=== PATIENT | female | born 1975 | race African-American/Black ===

== ENCOUNTER 2016-06-11 17:13 | Emergency (ER) | payer SELFPAY ==
[2016-06-11 17:13] VITALS: BP 128/85
[~2016-06-11 17:13] MED LIST: OXYC-323 PO
--- NOTE | 2016-06-11 17:48 | ED.ADGEN ---
Past History Past Medical History: No Pertinent History Past Surgical History: Cholecystectomy Alcohol Use: Sober Drug Use: None Adult General Chief Complaint Chief Complaint ".. The last 24 hours .. I had three watery stools... and pain down here on Lt...." [facility] HPI Patient is a 40 year old female who presents with Lt. lower 8/10 abdomen pain and diarrhea in past twenty four hours. No history of bad food. Patient last ate this before coming in today. Poorly stools have been brown in color and no findings of blood. No travel. No trauma. Patient normally healthy. Patient follows with a primary care. Review of Systems Review of Systems Constitutional: Denies fever or chills [] Eyes: Denies change in visual acuity, redness, or eye pain [] HENT: Denies nasal congestion or sore throat [] Respiratory: Denies cough or shortness of breath [] Cardiovascular: No additional information not addressed in HPI [] GI: Plaints of left lower quadrant abdominal pain, nausea, and diarrhea [] : Denies dysuria or hematuria [] Musculoskeletal: Denies back pain or joint pain [] Integument: Denies rash or skin lesions [] Neurologic: Denies headache, focal weakness or sensory changes [] Endocrine: Denies polyuria or polydipsia [] Family History Family History Noncontributory Current Medications Current Medications Current Medications Medications (Trade) Dose Ordered Sig/Asher Start Time Stop Time Status Last Admin Dose Admin Ceftriaxone Sodium/Sodium Chloride (Rocephin/Iv Sodium Chloride 0.9% 100ml) 100 ml @ 200 mls/hr 1X ONCE 06/11/16 19:30 06/11/16 19:59 DC 06/11/16 20:15 200 MLS/HR Ceftriaxone Sodium (Rocephin) 2 gm STK-MED ONCE 06/11/16 20:06 06/11/16 20:07 DC Famotidine 20 mg 20 mg 1X ONCE 06/11/16 18:15 06/11/16 18:16 DC 06/11/16 18:19 20 MG Iohexol (Omnipaque 240 Mg/ml) 30 ml 1X ONCE 06/11/16 19:30 06/11/16 19:31 DC 06/11/16 20:11 30 ML Iohexol 75 ml 75 ml 1X ONCE 06/11/16 19:30 06/11/16 19:31 DC 06/11/16 20:12 75 ML Lactated Ringer's (Iv Lactated Ringers) 1,000 ml @ 100 mls/hr Q10H 06/11/16 18:00 06/11/16 22:07 DC 06/11/16 18:17 100 MLS/HR Ondansetron HCl (Zofran) 8 mg 1X ONCE 06/11/16 18:15 06/11/16 18:16 DC 06/11/16 18:19 8 MG Sodium Chloride (Iv Sodium Chloride 0.9% 100ml) 100 ml @ As Directed STK-MED ONCE 06/11/16 20:06 06/11/16 20:07 DC Allergies Allergies Allergies Coded Allergies Type Severity Reaction Last Updated Verified doxycycline Allergy Severe Anaphylaxis 05/11/15 Yes lactose Allergy Intermediate 06/24/14 Yes clindamycin Allergy Unknown Unknown 05/11/15 Yes metronidazole Allergy Unknown Unknown 05/11/15 Yes Physical Exam Physical Exam Constitutional: Well developed, well nourished, no acute distress, non-toxic appearance. [] HENT: Normocephalic, atraumatic, bilateral external ears normal, oropharynx moist, no oral exudates, nose normal. [] Eyes: PERRLA, EOMI, conjunctiva normal, no discharge. [] Neck: Normal range of motion, no tenderness, supple, no stridor. [] Cardiovascular:Heart rate regular rhythm, no murmur [] Lungs & Thorax: Bilateral breath sounds clear to auscultation [] Abdomen: Bowel sounds hyperactive, soft, no tenderness, no masses, no pulsatile masses. Old surgical scar. Declines rectal exam this time. No true rebound. Skin: Warm, dry, no erythema, no rash. [] Back: No tenderness, no CVA tenderness. [] Extremities: No tenderness, no cyanosis, no clubbing, ROM intact, no edema. [] No true psoas, obturator or heeltap Neurologic: Alert and oriented X 3, normal motor function, normal sensory function, no focal deficits noted. [] Psychologic: Affect anxious, judgement normal, mood normal. [] Current Patient Data Vital Signs Vital Signs Date Time Temp Pulse Resp B/P Pulse Ox O2 Delivery O2 Flow Rate FiO2 06/11/16 17:13 98.4 77 18 99 Room Air Lab Results Laboratory Tests Test 06/11/16 18:00 White Blood Count 12.4x10^3/uL (4.0-11.0) H Red Blood Count 5.05x10^6/uL (3.50-5.40) Hemoglobin 12.5g/dL (12.0-15.5) Hematocrit 37.7% (36.0-47.0) Mean Corpuscular Volume 75fL (79-100) L Mean Corpuscular Hemoglobin 25pg (25-35) Mean Corpuscular Hemoglobin Concent 33g/dL (31-37) Red Cell Distribution Width 13.7% (11.5-14.5) Platelet Count 238x10^3/uL (140-400) Neutrophils (%) (Auto) 72% (31-73) Lymphocytes (%) (Auto) 21% (24-48) L Monocytes (%) (Auto) 6% (0-9) Eosinophils (%) (Auto) 1% (0-3) Basophils (%) (Auto) 0% (0-3) Neutrophils # (Auto) 9.0x10^3uL (1.8-7.7) H Lymphocytes # (Auto) 2.6x10^3/uL (1.0-4.8) Monocytes # (Auto) 0.7x10^3/uL (0.0-1.1) Eosinophils # (Auto) 0.2x10^3/uL (0.0-0.7) Basophils # (Auto) 0.0x10^3/uL (0.0-0.2) Prothrombin Time 9.5SEC (9.4-11.4) Prothrombin Time INR 0.9 (0.9-1.1) PTT 24SEC (23-33) Urine Collection Type Unknown Urine Color Yellow Urine Clarity Cloudy Urine pH 7.0 Urine Specific [place] 1.020 Urine Protein Neg (NEG-TRACE) Urine Glucose (UA) Negmg/dL (NEG) Urine Ketones (Stick) Negmg/dL (NEG) Urine Blood Trace (NEG) Urine Nitrite Neg (NEG) Urine Bilirubin Neg (NEG) Urine Urobilinogen Dipstick 0.2mg/dL (0.2 mg/dL) Urine Leukocyte Esterase Trace (NEG) Urine RBC 1-2/HPF (0-2) Urine WBC 11-20/HPF (0-4) Urine Squamous Epithelial Cells Many/LPF Urine Bacteria Few/HPF (0-FEW) Urine Hyaline Casts Few/HPF Urine Mucus Mod/LPF Maternal Serum HCG Beta Subunit < 1mIU/mL (0-6) Sodium Level 141mmol/L (136-145) Potassium Level 3.7mmol/L (3.5-5.1) Chloride Level 104mmol/L (98-107) Carbon Dioxide Level 27mmol/L (21-32) Anion Gap 10 (6-14) Blood Urea Nitrogen 6mg/dL (7-20) L Creatinine 0.8mg/dL (0.6-1.0) Estimated GFR (Cockcroft-Gault) 96.6 Glucose Level 114mg/dL (70-99) H Calcium Level 9.0mg/dL (8.5-10.1) Total Bilirubin 0.4mg/dL (0.2-1.0) Direct Bilirubin 0.1mg/dL (0.0-0.2) Aspartate Amino Transferase (AST) 10U/L (15-37) L Alanine Aminotransferase (ALT) 14U/L (14-59) Alkaline Phosphatase 109U/L (46-116) Creatine Kinase 55U/L (26-192) Troponin I Quantitative < 0.017ng/mL (0-0.055) Total Protein 7.6g/dL (6.4-8.2) Albumin 3.9g/dL (3.4-5.0) Amylase Level 62U/L (25-115) Lipase 91U/L (73-393) Urine Opiates Screen Neg (NEG) Urine Methadone Screen Neg (NEG) Urine Barbiturates Neg (NEG) Urine Phencyclidine Screen Neg (NEG) Urine Amphetamine/Methamphetamine Neg (NEG) Urine Benzodiazepines Screen Neg (NEG) Urine Cocaine Screen Neg (NEG) Urine Cannabinoids Screen Neg (NEG) Urine Ethyl Alcohol Neg (NEG) EKG EKG [] Radiology/Procedures Radiology/Procedures My interpretation of x-ray shows no free air under the diaphragm. Does have findings of surgical clips from cholecystectomy and wires from tubal ligation. Also has an isolated clip in right mid abdomen. Nonspecific bowel gas pattern. [ ]CT show s no acute surgical pathology. Ovarian Cyst. Increased stool. Course & Med Decision Making Course & Med Decision Making Pertinent Labs and Imaging studies reviewed. (See chart for details). Stay on a clear fluid diet only for the next 48 hours. No solid no milk products clear fluids only to allow bowel rest. Take Zofran 8 mg up 4 times a day for vomiting. Take [id number] Pepto-Bismol as needed. Follow up all cultures and labs with primary. Take Keflex 500 mg 3 times a day for 7 days. [] Final Impression Final Impression 1. Abdomen Pain 2. Diarrhea[] 3. UTI 4. Leukocytosis 5. Microcytic Volume 6. Ovarian Cyst Problems: Dragon Disclaimer Dragon Disclaimer This electronic medical record was generated, in whole or in part, using a voice recognition dictation system. CARLOS ENRIQUE LAURA MD Jun 11, 2016 17:48
[2016-06-11] MEDS ORDERED: IV RINGERS SOLUTION,LACTATED 1,000 ML IV SCH (18:00)
[2016-06-11] MEDS ORDERED: ONDANSETRON PF 4 MG/2 ML VIAL. IV ONE (18:15)
[2016-06-11] MEDS ORDERED: FAMOTIDINE 20 MG/2 ML VIAL IVP ONE (18:15)
[2016-06-11 18:26] LABS: BASO % 0 % (0-3); EOS # 0.2 x10^3/uL (0.0-0.7); EOS % 1 % (0-3); HEMATOCRIT 37.7 % (36.0-47.0); HEMOGLOBIN 12.5 g/dL (12.0-15.5); LYMPH # 2.6 x10^3/uL (1.0-4.8); LYMPH % 21 % (24-48); MEAN CORPUSCULAR HEMOGLOBIN 25 pg (25-35); MEAN CORPUSCULAR HGB CONC 33 g/dL (31-37); MEAN CORPUSCULAR VOLUME 75 fL (79-100); MONO # 0.7 x10^3/uL (0.0-1.1); MONO % 6 % (0-9); NEUT % 72 % (31-73); PLATELET COUNT 238 x10^3/uL (140-400); RED BLOOD COUNT 5.05 x10^6/uL (3.50-5.40); RED CELL DISTRIBUTION WIDTH 13.7 % (11.5-14.5); WHITE BLOOD COUNT 12.4 x10^3/uL (4.0-11.0)
[2016-06-11 18:38] LABS: BILIRUBIN,URINE NEG (NEG); CLARITY,URINE CLOUDY; COLOR,URINE YELLOW; GLUCOSE,URINE NEG (NEG)
[2016-06-11 18:39] LABS: NITRITE,URINE NEG (NEG); UROBILINOGEN,URINE 0.2 mg/dL (0.2 mg/dL)
[2016-06-11 18:40] LABS: BACTERIA,URINE FEW /HPF (0-FEW); SQUAMOUS EPITHELIAL CELL,UR MANY /LPF
[2016-06-11 18:42] LABS: HYALINE CASTS, URINE FEW /HPF
[2016-06-11 18:44] LABS: AMPHETAMINE/METHAMPHETAMINE NEG (NEG); BARBITURATES NEG (NEG); BENZODIAZEPINES NEG (NEG); CANNABINOIDS NEG (NEG); COCAINE NEG (NEG); METHADONE NEG (NEG); OPIATES NEG (NEG); PHENCYCLIDINE NEG (NEG)
[2016-06-11 18:46] LABS: ALBUMIN 3.9 g/dL (3.4-5.0); CREATININE 0.8 mg/dL (0.6-1.0); DIRECT BILIRUBIN 0.1 mg/dL (0.0-0.2); GFR 96.6; POTASSIUM 3.7 mmol/L (3.5-5.1); TOTAL BILIRUBIN 0.4 mg/dL (0.2-1.0); TOTAL PROTEIN 7.6 g/dL (6.4-8.2)
[2016-06-11] MEDS ORDERED: IOHEXOL 240 MG/ML 50ML VIAL. PO ONE (19:30)
[2016-06-11] MEDS ORDERED: IOHEXOL 300 MG/ML 75 ML VIAL. IV ONE (19:30)
[2016-06-11] MEDS ORDERED: CEFTRIAXONE SODIUM 2 GM in IV NORMAL SALINE 100ML 100 ML IV ONE (19:30)
[2016-06-11] MEDS ORDERED: IV NORMAL SALINE 100ML 100 ML ONE (20:06)
[2016-06-11] MEDS ORDERED: CEFTRIAXONE SODIUM 2 GM VIAL IV ONE (20:06)
--- NOTE | 2016-06-11 20:53 | RAD ---
PROCEDURE CT abdomen pelvis with contrast. HISTORY Severe left-sided abdominal pain. Diarrhea today. TECHNIQUE Helical CT imaging of the abdomen and pelvis is performed after oral contrast and 75 cc Omnipaque 300 IV contrast. PQRS: One or more the following individualized dose reduction techniques were utilized for the study: 1. Automated exposure control. 2. Adjustment of the mA and/or kV according to patient size. 3. Use of iterative reconstruction technique. COMPARISON CT abdomen pelvis with contrast June 24, 2014. FINDINGS The minimal atelectasis or scarring right middle lobe. Cardiac size normal. Cholecystectomy. The liver, spleen, pancreas, adrenal glands, kidneys, and abdominal aorta are normal. Stomach unremarkable. No dilated small bowel. No colon wall thickening is seen. The appendix is normal. No abdominal adenopathy or free fluid. There are bilateral fallopian tube occlusion devices. Uterus unremarkable. Peripherally enhancing left ovary functional cyst measures 2.9 cm. There is trace pelvic free fluid, probably physiologic. Urinary bladder is normal. No acute bone abnormality. IMPRESSION 1. No acute abdominal or pelvic abnormality. 2. Small left ovary functional cyst. Trace pelvic free fluid. Findings are probably physiologic. Electronically signed by: Scott Herzog MD (Jun 11, 2016 20:51:59)
[2016-06-11] MEDS ORDERED: HYDR-79 PO (21:38)
[2016-06-11] MEDS ORDERED: CEPH-264 PO (21:38)
[2016-06-11] MEDS ORDERED: ONDA8TAB12 PO (21:39)
--- NOTE | 2016-06-12 08:11 | RAD ---
Acute abdomen series with chest, 06/11/2016: History: Left-sided pain The abdominal gas pattern is unremarkable without evidence of obstruction. No free air is seen in the abdomen. There is no evidence of organomegaly. Fallopian tube occlusion devices are evident in the upper pelvis. There are surgical clips in the right upper quadrant. An additional small radiopaque clip is projected over the right lower quadrant. The heart size is normal. The lungs are clear. There is no evidence of pleural fluid. IMPRESSION: No acute abdominal abnormality is detected.
== END 2016-06-11 21:50 | disposition home or self-care (01) ==
LOC: ER 17:13
DX: N39.0 Urinary tract infection, site not specified (principal); N83.202 Unspecified ovarian cyst, left side; R10.32 Left lower quadrant pain; R19.7 Diarrhea, unspecified; D72.829 Elevated white blood cell count, unspecified; D50.9 Iron deficiency anemia, unspecified; Z90.49 Acquired absence of other specified parts of digestive tract; Z88.8 Allergy status to other drugs, medicaments and biological substances; Z88.1 Allergy status to other antibiotic agents; Z91.011 Allergy to milk products
CPT/HCPCS: 36415; 74022; 74177; 80048; 80076; 80305; 81001; 82150; 82550; 83690; 84484; 84702; 85027; 85610; 85730; 96361; 96365; 96375; 99285; J0696; J2405; J7120; Q9966; Q9967; S0028; G0481

== ENCOUNTER 2016-09-14 00:11 | Emergency (ER) | payer SELFPAY ==
[~2016-09-14] VITALS: Ht 157.5 cm; Wt 66.7 kg
[~2016-09-14 00:11] MED LIST changes: +CEPH-264 PO; +HYDR-79 PO; +ONDA8TAB12 PO
[2016-09-14] MEDS ORDERED: NITROGLYCERIN SUBLINGUAL 0.4 MG BOTTLE OF 25. SL PRN (00:30)
[2016-09-14 00:48] LABS: BASO % 1 % (0-3); EOS # 0.2 x10^3/uL (0.0-0.7); EOS % 3 % (0-3); HEMATOCRIT 40.1 % (36.0-47.0); HEMOGLOBIN 13.5 g/dL (12.0-15.5); LYMPH # 3.5 x10^3/uL (1.0-4.8); LYMPH % 36 % (24-48); MEAN CORPUSCULAR HEMOGLOBIN 25 pg (25-35); MEAN CORPUSCULAR HGB CONC 34 g/dL (31-37); MEAN CORPUSCULAR VOLUME 74 fL (79-100); MONO # 0.6 x10^3/uL (0.0-1.1); MONO % 6 % (0-9); NEUT # 5.2 x10^3uL (1.8-7.7); NEUT % 55 % (31-73); PLATELET COUNT 252 x10^3/uL (140-400); RED BLOOD COUNT 5.44 x10^6/uL (3.50-5.40); RED CELL DISTRIBUTION WIDTH 13.6 % (11.5-14.5); WHITE BLOOD COUNT 9.6 x10^3/uL (4.0-11.0)
[2016-09-14] MEDS ORDERED: ASPIRIN 81 MG TAB.CHEW PO ONE (01:00)
[2016-09-14 01:06] LABS: ALBUMIN 4.2 g/dL (3.4-5.0); CALCIUM 9.1 mg/dL (8.5-10.1); CREATININE 0.7 mg/dL (0.6-1.0); GFR 112.7; POTASSIUM 3.8 mmol/L (3.5-5.1); TOTAL BILIRUBIN 0.7 mg/dL (0.2-1.0); TOTAL PROTEIN 8.6 g/dL (6.4-8.2)
[2016-09-14 01:24] VITALS: BP 127/83
--- NOTE | 2016-09-14 01:56 | PHYS DOC ---
General Chief Complaint: flank pain/emesis Stated Complaint: DIZZY,VOMITING,BACK AND CHEST PAIN Time Seen by MD: 00:30 Source: patient Exam Limitations: no limitations Problems: History of Present Illness Initial Comments Patient is a 40-year-old female who comes to the ED complaining of abdominal and flank pain, nausea vomiting. Patient states that earlier tonight she was feeling well and had to go into work at 10 PM where she works at [employer]. She says she's on her feet a lot at work and immediately prior to arrival while working she developed cold sweats , lightheadedness, epigastric discomfort and vomited once. She had burning/ throbbing discomfort at her anterior chest after vomiting which resolved after a short time with no treatment. She otherwise denies chest pain, shortness of breath, arm or neck discomfort, fever chills sweats or myalgias. She denies travel or bad food exposure, no change in bowel movements last bowel movement yesterday described as normal. She does admit to several days worsening left flank pain and urinary frequency no hematuria odor dysuria or unexplained weight loss. In the emergency department patient remains mildly nauseous she's had no further emesis after receiving Zofran. No focal abdominal pain complaints. Denies hypertension, hyperlipidemia, diabetes; patient smokes greater than one pack per day and denies family history of coronary artery disease aside from that experience by relatives in extreme old age. Timing/Duration: 1/2 hour Severity: moderate Modifying Factors: worse with eating, worse with movement, improves with rest Associated Symptoms: diaphoresis, malaise, nausea/vomiting, other Allergies: Coded Allergies: doxycycline (Verified Allergy, Severe, Anaphylaxis, 05/11/15) lactose (Verified Allergy, Intermediate, 06/24/14) clindamycin (Verified Allergy, Unknown, Unknown, 05/11/15) metronidazole (Verified Allergy, Unknown, Unknown, 05/11/15) Past Medical History Medical History: no pertinent history Surgical History: cholecystectomy Family History Significant Family History: other (FH of CAD only in "old age" no early onset CAD or sudden cardiac ) Social History Smoker: greater than 1 pack/day Alcohol: none Drugs: none Review of Systems Constitutional: see HPI, denies fever Respiratory: denies cough, denies orthopnea, denies shortness of breath, denies wheezing Cardiovascular: denies chest pain, denies edema, denies palpitations, denies syncope Gastrointestinal: see HPI Genitourinary: denies dysuria, frequency, denies hematuria Musculoskeletal: see HPI, denies joint swelling, denies neck pain Psychiatric/Neurological: denies headache, denies numbness, denies paresthesia Hematologic/Lymphatic: denies blood clots, denies easy bleeding, denies easy bruising Physical Exam General Appearance: WD/WN, no apparent distress Eyes: bilateral eye normal inspection, bilateral eye PERRL, bilateral eye EOMI Ear, Nose, Throat: hearing grossly normal, normal ENT inspection, normal pharynx Neck: non-tender, supple Respiratory: lungs clear, normal breath sounds Cardiovascular: normal peripheral pulses, regular rate, rhythm Gastrointestinal: soft (nondistended, bowel sounds normal, mild abdominal muscle tenderness negative McBurney negative Hartman no rebound guarding or palpable mass) Back: no vertebral tenderness, CVA tenderness (L) Extremities: non-tender, normal inspection Neurologic/Psychiatric: director strategic account management II-XII nml as tested, no motor/sensory deficits, alert, normal mood/affect, oriented x 3 Skin: normal color, warm/dry Orders, Labs, Meds EKG: Normal sinus rhythm 74 bpm, nonspecific ST-T changes no STEMI. Interpreted by Dr. Andrade PCXR: Hyperinflation otherwise no acute cardiopulmonary process noted. Interpreted by Dr. Andrade Pertinent labs: Cardiac enzymes negative, d-dimer 0.44 Urine dipstick positive for leukocyte esterase sent for culture. ED course: 40-year-old female smoker with no past medical history comes to the ED with several days flank pain urinary frequency and one episode of nausea and vomiting with cold sweats and lightheadedness while working. Symptoms resolved with Zofran by mouth, ED workup has been unremarkable aside from pyelonephritis. Only coronary artery disease risk factor is tobacco abuse, low probability of coronary etiology for tonight symptoms. I discussed the treatment plan as well as possibility of observation admission. Patient requests discharge home, she will be discharged with antibiotics and symptomatic treatment. She expressed agreement and understanding of treatment plan. She was advised to stop smoking. Departure Time of Disposition: 01:54 Disposition: HOME, SELF-CARE Diagnosis: pyelonephritis, tobaccoism Condition: GOOD Patient Instructions: Pyelonephritis, Adult, [id number] Additional Instructions: No driving or operating machinery while taking sedative medications. Off work through September 17. Clear liquids, advance diet slowly as tolerated. Aggressive hydration with Gatorade and water. [id number] Tylenol as needed. Prescription: Bactrim DS, Pyridium 100 mg, Zofran 4 mg ODT, [place] 5 mg quantity 10 A Tylenol 3 starter pack has been dispensed to you in the ED. Take 1-2 every 6 hours as needed for severe pain. Take medications with food to avoid nausea and vomiting. Increase fluid intake and take [id number] stool softeners to avoid constipation. Follow-up with your doctor on Saturday for recheck and urine culture results. Return to the ED with new or changing symptoms. PARVIZ ANDRADE DO Sep 14, 2016 01:56
[2016-09-14] MEDS ORDERED: SMZ/TMP 800/160MG TABLET. PO ONE (02:00)
[2016-09-14] MEDS ORDERED: ACETAMINOPHEN/CODEINE 300/30MG 4TABLET STARTPACK. PO ONE (02:00)
[2016-09-14] MEDS ORDERED: PHENAZOPYRIDINE 100 MG TABLET. PO ONE (02:00)
[2016-09-14 05:10] LABS: BILIRUBIN,URINE SMALL (NEG); CLARITY,URINE CLOUDY; COLOR,URINE YELLOW; GLUCOSE,URINE NEG (NEG)
[2016-09-14 05:11] LABS: NITRITE,URINE NEG (NEG); UROBILINOGEN,URINE 2 mg/dL (0.2 mg/dL)
--- NOTE | 2016-09-14 06:47 | EKG ---
[address] [address] Test Date: 2016-09-14 Test Time: 00:24:24 Pat Name: TOMMY NEVAREZ Department: Room: Gender: F Product Safety Lead: JAZZMINE : 1975 Requested By: PARVIZ MARTINEZ Order Number: [id number] Reading MD: Measurements Intervals [place] Rate: 74 P: 37 [place]: 140 QRS: -18 QRSD: 74 T: 32 QT: 334 QTc: 371 Interpretive Statements SINUS ARRHYTHMIA LEFTWARD AXIS QRS(T) CONTOUR ABNORMALITY CANNOT RULE OUT ANTEROSEPTAL MYOCARDIAL DAMAGE RI6.01 Unconfirmed report No previous ECG available for comparison
--- NOTE | 2016-09-14 09:08 | RAD ---
Portable chest, 09/14/2016: History: Chest pain Comparison is made to a study from 06/11/2016. The heart size and pulmonary vascularity are normal. No pulmonary infiltrates are seen. There is no evidence of pleural fluid. IMPRESSION: No acute cardiopulmonary abnormality is detected.
== END 2016-09-14 02:04 | disposition home or self-care (01) ==
LOC: ER 00:11
DX: N12 Tubulo-interstitial nephritis, not specified as acute or chronic (principal); Z87.891 Personal history of nicotine dependence; Z88.8 Allergy status to other drugs, medicaments and biological substances; Z88.1 Allergy status to other antibiotic agents; Z91.011 Allergy to milk products
CPT/HCPCS: 36415; 71010; 80053; 81003; 82550; 83690; 83880; 84484; 85027; 85379; 93005; 99285-25

== ENCOUNTER 2016-12-05 16:58 | Emergency (ER) | payer SELFPAY ==
[~2016-12-05] VITALS: Ht 157.5 cm; Wt 70.6 kg
[2016-12-05 17:06] VITALS: BP 132/77
[2016-12-05] MEDS ORDERED: IBUP400T18 PO (17:34)
--- NOTE | 2016-12-05 17:34 | PHYS DOC ---
Past History Past Medical History: No Pertinent History Past Surgical History: Cholecystectomy Alcohol Use: Sober Drug Use: None Adult General Chief Complaint Chief Complaint: WRIST PAIN HPI HPI 41-year-old female presenting to the emergency department today with left wrist pain. She reports lifting a heavy teapot yesterday while at work at [employer]. This morning she woke up her left wrist hurts with swelling. Her pain is sharp moderate intermittent worse with movement of the wrist. Otherwise she denies any traumatic injuries. She denies any fevers. Review of systems is negative for chest pain shortness of breath elbow pain or shoulder pain more proximally. All other review of systems is negative unless otherwise noted in history of present illness. ED course: 41-year-old female presenting to the emergency department today with left wrist pain. Afebrile with otherwise normal vital signs. Physical examination of the left wrist shows mild swelling with tenderness palpation along the dorsum of the patient's left wrist. Nontender scaphoid, nontender snuff box. No abrasions lacerations or ecchymosis of the skin. No evidence of cellulitis. Joint is similar in temperature when compared to the contralateral. 2 second cap refill with palpable pulse normal neurovascular status of the hand. X-ray obtained. The patient was then discharged home in stable condition to follow up with their primary care physician over the next 2-3 days. They were to return if their symptoms worsened or if they were concerned for any reason. [id number] discharge instructions and return precautions were given. Patient's questions were answered to their satisfaction. Patient is comfortable plan. Review of Systems Review of Systems SEE ABOVE. Current Medications Current Medications Current Medications Medications (Trade) Dose Ordered Sig/Asher Start Time Stop Time Status Last Admin Dose Admin Ibuprofen (Motrin) 400 mg 1X ONCE 12/05/16 17:45 12/05/16 17:46 12/05/16 17:24 400 MG Allergies Allergies Allergies Coded Allergies Type Severity Reaction Last Updated Verified doxycycline Allergy Severe Anaphylaxis 05/11/15 Yes lactose Allergy Intermediate 06/24/14 Yes clindamycin Allergy Unknown Unknown 05/11/15 Yes metronidazole Allergy Unknown Unknown 05/11/15 Yes Physical Exam Physical Exam SEE ABOVE Constitutional: Well developed, well nourished, no acute distress, non-toxic appearance. [] HENT: Normocephalic, atraumatic, bilateral external ears normal, oropharynx moist, no oral exudates, nose normal. [] Eyes: PERRLA, EOMI, conjunctiva normal, no discharge. [] Neck: Normal range of motion, no tenderness, supple, no stridor. [] Cardiovascular:Heart rate regular rhythm, no murmur [] Lungs & Thorax: Bilateral breath sounds clear to auscultation [] Abdomen: Bowel sounds normal, soft, no tenderness, no masses, no pulsatile masses. [] Skin: Warm, dry, no erythema, no rash. [] Back: No tenderness, no CVA tenderness. [] Extremities: SEE ABOVE Neurologic: Alert and oriented X 3, normal motor function, normal sensory function, no focal deficits noted. [] Psychologic: Affect normal, judgement normal, mood normal. [] Current Patient Data Vital Signs Vital Signs Date Time Temp Pulse Resp B/P (MAP) Pulse Ox O2 Delivery O2 Flow Rate FiO2 12/05/16 17:06 97.9 64 18 100 Room Air EKG EKG [] Radiology/Procedures Radiology/Procedures [] Course & Med Decision Making Course & Med Decision Making Pertinent Labs and Imaging studies reviewed. (See chart for details) [] Dragon Disclaimer Dragon Disclaimer This chart was dictated in whole or in part using Voice Recognition software in a busy, high-work load, and often noisy Emergency Department environment. It may contain unintended and wholly unrecognized errors or omissions. Departure Departure: Impression: Primary Impression: Left wrist pain Disposition: HOME, SELF-CARE Condition: STABLE Referrals: PCP,NO (PCP) Patient Instructions: Wrist Pain, [id number] Additional Instructions: Thank you for allowing us to participate in your care today. Followup with your primary care physician in 3 days if your symptoms do not improve. Call your Primary Doctor tomorrow and inform them of your visit today. If you do not have a primary care provider you can ask for a list of our primary care providers. Return to the emergency department you have any new or concerning findings. This should be evaluated by the primary care physician and any necessary consulting services for continued management within a few days after discharge. Return to emergency room if you have any new or concerning symptoms including but not limited to fever, chills, nausea, vomiting, intractable pain, any new rashes, chest pain, shortness of air, uncontrolled bleeding, difficulty breathing, and/or vision loss. Scripts Ibuprofen (IBUPROFEN) 400 Mg Tablet 1 TAB PO PRN Q8HRS Y for PAIN, #20 TAB Prov: ANUJA ROLON MD 12/05/16 ANUJA ROLON MD Dec 05, 2016 17:34
[2016-12-05] MEDS ORDERED: IBUPROFEN 400 MG TABLET. PO ONE (17:45)
--- NOTE | 2016-12-06 07:47 | RAD ---
Wrist x-rays Indication: Left wrist pain Technique: 3 views of the left wrist Comparison: None Findings: No acute fracture or dislocation. No soft tissue abnormality. No arthritic changes. Impression: No acute findings.
== END 2016-12-05 18:13 | disposition home or self-care (01) ==
LOC: ER 16:58
DX: M25.532 Pain in left wrist (principal); R22.32 Localized swelling, mass and lump, left upper limb; X58.XXXA Exposure to other specified factors, initial encounter; Y93.89 Activity, other specified; Y92.89 Other specified places as the place of occurrence of the external cause; Y99.8 Other external cause status; Z88.8 Allergy status to other drugs, medicaments and biological substances; Z88.1 Allergy status to other antibiotic agents; Z91.011 Allergy to milk products
CPT/HCPCS: 73110; 99284

== ENCOUNTER 2017-05-11 06:56 | Emergency (ER) | payer SELFPAY ==
[~2017-05-11] VITALS: Ht 157.5 cm; Wt 68.0 kg
[~2017-05-11 06:56] MED LIST changes: +IBUP400T18 PO
[2017-05-11 07:06] VITALS: BP 129/90
[2017-05-11] MEDS ORDERED: PRED20TA PO (07:20)
[2017-05-11] MEDS ORDERED: AZIT250T PO (07:20)
[2017-05-11] MEDS ORDERED: MOME17SP NS (07:20)
--- NOTE | 2017-05-11 07:24 | PHYS DOC ---
General Chief Complaint: COUGH Stated Complaint: CONGESTED,SEVERE HEADACHE,BODY ACHES X 4DYS Time Seen by MD: 07:06 Source: patient Exam Limitations: no limitations Problems: History of Present Illness Initial Comments 41-year-old female comes to the ED complaining of sneezing and watery eyes and itchy eyes nonproductive cough wheezing and dyspnea on exertion. Patient smokes cigarettes since 17 years of age, has cut down the past several days due to her current symptoms. She's had facial pain located at maxillary and frontal sinuses and lots of clear watery nasal discharge. She's had a sore throat described as moderate to severe limiting by mouth solid intake she still able to drink denies any difficulty swallowing or breathing. No fevers no nausea vomiting no bowel or bladder symptoms. She's had dyspnea on exertion with no chest pain. Timing/Duration: 1 week Severity: moderate Modifying Factors: worse with movement, improves with rest Associated Symptoms: cough, headaches, loss of appetite, malaise, shortness of breath, other Allergies: Coded Allergies: doxycycline (Verified Allergy, Severe, Anaphylaxis, 05/11/15) lactose (Verified Allergy, Intermediate, 06/24/14) clindamycin (Verified Allergy, Unknown, Unknown, 05/11/15) metronidazole (Verified Allergy, Unknown, Unknown, 05/11/15) Past Medical History Medical History: no pertinent history Surgical History: cholecystectomy Family History Significant Family History: other Social History Smoker: cigarettes Alcohol: none Drugs: none Review of Systems Constitutional: denies chills, denies diaphoresis, denies fever, malaise EENTM: denies eye pain, denies blurred vision, tearing, denies ear pain, denies ear discharge, denies nose pain, nose congestion, throat pain, denies throat swelling, denies mouth swelling Respiratory: cough, denies orthopnea, shortness of breath, wheezing Cardiovascular: denies chest pain, denies edema, denies palpitations, denies syncope Gastrointestinal: denies abdominal pain, denies nausea, denies vomiting Genitourinary: denies dysuria, denies frequency, denies hematuria Musculoskeletal: denies back pain, denies joint pain, denies neck pain Psychiatric/Neurological: denies numbness, denies paresthesia, denies weakness Hematologic/Lymphatic: denies blood clots, denies easy bleeding, denies easy bruising Physical Exam General Appearance: WD/WN, no apparent distress Eyes: bilateral eye PERRL, bilateral eye EOMI, bilateral eye other ( conjunctivae injected bilaterally) Ear, Nose, Throat: other (turbinates inflamed with clear discharge, pharynx beefy red with some clear postnasal drip airway is patent, TMs and canals normal , maxillary and frontal sinus tenderness) Neck: non-tender, full range of motion, supple Respiratory: chest non-tender, no respiratory distress, no accessory muscle use , wheezing Cardiovascular: normal peripheral pulses, regular rate, rhythm Back: no CVA tenderness, no vertebral tenderness Extremities: normal range of motion, non-tender, normal inspection, no calf tenderness 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 I discussed smoking cessation and allergic rhinitis/COPD. Discussed signs and symptoms to monitor for as well as indications for urgent return to the department. Discussed [id number] prescription medications, patient's questions were answered to her satisfaction and she expressed agreement and understanding of treatment plan Departure Time of Disposition: 07:20 Disposition: 01 HOME, SELF-CARE Diagnosis: allergic rhinitis, pharyngitis, COPD exac, tobacco Condition: GOOD Patient Instructions: Allergic Rhinitis, Chronic Obstructive Pulmonary Disease Exacerbation, [id number], Smoking, You Can Quit, [id number] Additional Instructions: Please review the patient education materials given by ED staff. Stop smoking seek medical assistance if necessary. Shower and change clothes when coming in the house from outside to physically remove allergen. Off work through May 14. Use the albuterol MDI with spacer: 2 puffs every 4 hours and as needed. [id number] cetirizine for morning symptoms, diphenhydramine for evening symptoms (sedating) [id number] Tylenol and analgesic throat sprays as needed. [id number] Afrin or similar as needed per package instructions. Prescription: Zithromax, prednisone, Nasonex Follow-up with your doctor in 7-10 days if not better. Return to ED with new or changing symptoms. SILVESTRE MARTINEZ DO May 11, 2017 07:24
[2017-05-11] MEDS ORDERED: ALBUTEROL SULFATE 8GM INHALER. INH ONE (07:45)
[2017-05-11] MEDS ORDERED: predniSONE 10 MG TABLET PO ONE (07:45)
== END 2017-05-11 07:37 | disposition home or self-care (01) ==
LOC: ER 06:56
DX: J44.0 Chronic obstructive pulmonary disease with (acute) lower respiratory infection (principal); J44.1 Chronic obstructive pulmonary disease with (acute) exacerbation; J30.9 Allergic rhinitis, unspecified; F17.210 Nicotine dependence, cigarettes, uncomplicated; Z88.8 Allergy status to other drugs, medicaments and biological substances; Z88.1 Allergy status to other antibiotic agents; Z91.011 Allergy to milk products
CPT/HCPCS: 94640; 99283; J7512; J7613; 94664